=== PATIENT | male | born 1995 | race Caucasian/White ===

== ENCOUNTER 2022-05-09 07:41 | Day surgery (SDC) | payer MEDICAID ==
[2022-05-09 07:55] VITALS: BP 141/78
[2022-05-09] MEDS ORDERED: OMEP20TA23 PO (08:06)
[2022-05-09] MEDS ORDERED: MIDAZolam 1 MG/ML 5ML VIAL ONE (08:41)
[2022-05-09] MEDS ORDERED: fentaNYL/PF 50MCG/1 ML 2ML syringe ONE (08:41)
[2022-05-09] MEDS ORDERED: LIDOcaine Viscous 15ml cup ONE (08:42)
[2022-05-09 08:55] VITALS: BP 128/66
[2022-05-09 09:05] VITALS: BP 124/63
[2022-05-09 09:15] VITALS: BP 99/72
[2022-05-09 09:25] VITALS: BP 100/58
== END 2022-05-09 09:50 | disposition home or self-care (01) ==
LOC: GI LAB 07:41
PROVIDERS: ATTEND Internal Medicine Gastroenterology
DX: K29.50 Unspecified chronic gastritis without bleeding (principal)
CPT/HCPCS: 43239; J2250; J3010; J7030; Z7512; 99152; A4620